=== PATIENT | female | born 2000 ===

== ENCOUNTER → 2025-03-15 | Outpatient (REF) | LOC: M LAB 13:20 | PROVIDERS: ATTEND Family Medicine | DX: Z01.89 Encounter for other specified special examinations (principal) ==

== ENCOUNTER → 2025-03-15 | Outpatient (REF) ==
[2025-03-17 14:43] LABS: HERPES ZOSTER, VARICELLA IgG 1.06 S/CO (>=1.00); RUBEOLA IgG ANTIBODY > 300.00 AU/mL (>16.49)
== END ==
LOC: M LAB 13:55
PROVIDERS: ATTEND Family Medicine
DX: Z02.1 Encounter for pre-employment examination (principal)

== ENCOUNTER → 2025-03-20 | Outpatient (REF) | LOC: M LAB 03-18 10:59 | PROVIDERS: ATTEND Family Medicine | DX: Z01.89 Encounter for other specified special examinations (principal) ==